=== PATIENT | female | born 1990 ===

== ENCOUNTER 2023-04-26 18:49 | Emergency (ER) | payer OTHER, MEDICAID, SELFPAY ==
[2023-04-26 18:55] VITALS: BP 140/90; PULSE 89; RESP 18; TEMP 36.7; O2SAT 99; BMI 39.4
[2023-04-26 18:59] VITALS: PULSE 88
--- NOTE | 2023-04-26 18:59 | DI.RAD.S_ITS ---
PROCEDURE: XR ANKLE RT MIN 3V INDICATIONS: slipped on slip and slide. + swelling unable to bear weigh TECHNIQUE: 3 views of the ankle were acquired. COMPARISON: None. FINDINGS: Bones: There is a minimally displaced fracture of the lateral malleolus. No dislocation. Ankle mortise is normally aligned. No suspicious bony lesions. Soft tissues: There is a small tibiotalar joint effusion. Periarticular soft tissue swelling also demonstrated anteriorly and laterally. Achilles tendon appears normal. IMPRESSION: 1. Minimally displaced lateral malleolus fracture. Dictated by: Sourav Martinez M.D. on 04/26/2023 at 20:10 Approved by: Sourav Martinez M.D. on 04/26/2023 at 20:11
--- NOTE | 2023-04-26 22:20 | ED.LOWEXIN ---
HPI - Extremity Injury (Lower) General Chief Complaint: Extremity Injury, Lower Stated Complaint: R Ankle Injury Time Seen by Provider: 04/26/23 22:20 Source: patient and EMS Mode of arrival: EMS History of Present Illness HPI Narrative: Patient is a healthy 32-year-old female who presents today with right ankle pain and injury. She reports that she slipped on slip and slide unable to ambulate or bear weight. Denies any other injury. Related Data Previous Rx's Medication Instructions Recorded hydrocodone 5 mg-acetaminophen 325 1 tab PO Q6H PRN pain #10 tabs 04/26/23 mg tablet Allergies Allergy/AdvReac Type Severity Reaction Status Date / Time No Known Drug Allergies Allergy Verified 04/26/23 18:50 Review of Systems Review of Systems ROS Unobtainable: All systems reviewed & are unremarkable except as noted in HPI and below Patient History Social History Smoking Status: Current some day smoker Smoking Status: Current some day smoker tobacco type: cigarettes alcohol intake frequency: 0-2 drinks per day Substance Use Type: does not use Exam Initial Vital Signs Initial Vital Signs: Vital Signs Temperature 98.1 F 04/26/23 18:55 Pulse Rate 89 04/26/23 18:55 Respiratory Rate 18 04/26/23 18:55 Blood Pressure 140/90 04/26/23 18:55 Pulse Oximetry 99 04/26/23 18:55 Oxygen Delivery Method Room Air 04/26/23 18:55 GENERAL: Alert pleasant 32-year-old female HEENT: Head atraumatic,EOMI, pupils reactive, face symmetric, moist mucous membranes CARDIOVASCULAR: No cyanosis peripheral pulses intact RESPIRATORY: No respiratory distress speaks in full sentences ABDOMEN: Soft, nontender. Normoactive bowel sounds all 4 quadrants. No guarding or rebound. EXTREMITIES: Normal range of motion, no clubbing or edema. Neurovascularly intact Right lower extremity tender lateral malleoli distal pedal pulse intact knee is stable NEUROLOGICAL: Alert and oriented x4. SKIN: Warm, dry, no laceration, no petechiae, no rashes or lesions. Procedures Orthopedic Splinting/Casting Injury #1: Lower Extremity Injury Location: ankle Lower Extremity Immobilizer: boot orthosis Other Orthopedic Equipment: crutches Post splinting neuro exam: intact and no change Post splinting vascular exam: no change Placed by: Nursing Course Orders Ordered: ED Orders 04/26/23 18:59 XR ankle RT min 3V Stat Discontinued Medications Hydrocodone Bitart/Acetaminophen (Hydrocodone/Acet 5/325 Prepack) 1 bottle MISC SEEINSTR ONE Stop: 04/26/23 22:39 Last Admin: 04/26/23 22:49 Dose: 1 bottle Documented By: HARRISON Ketorolac Tromethamine (Ketorolac 30 Mg/Ml Vial) 15 mg IV NOW ONE Stop: 04/26/23 22:39 Last Admin: 04/26/23 22:48 Dose: 15 mg Documented By: HARRISON Vital Signs Vital signs: Vital Signs - 8 hr 04/26/23 23:10 Temperature 98.2 F Pulse Rate 90 Respiratory Rate 18 Blood Pressure 130/78 Pulse Oximetry 98 Oxygen Delivery Method Room Air MDM - Extremity Injury (Lower) Imaging Data Extremity x-ray #1: Radiologist's Impression: PROCEDURE:? XR ANKLE RT MIN 3V ? INDICATIONS:? slipped on slip and slide. + swelling ? unable to bear weigh ? TECHNIQUE:? 3 views of the ankle were acquired.? ? COMPARISON:? None. ? FINDINGS:? ? Bones:? There is a minimally displaced fracture of the lateral malleolus.? No dislocation.? Ankle mortise is normally aligned.? No suspicious bony lesions.? ? Soft tissues:? There is a small tibiotalar joint effusion.? Periarticular soft tissue swelling also demonstrated anteriorly and laterally.? Achilles tendon appears normal.? ? ? IMPRESSION:? ? 1. Minimally displaced lateral malleolus fracture. ? ? Dictated by: Sourav Martinez M.D. on 04/26/2023 at 20:10 ? ? [facility] Narrative Medical decision making narrative: Patient 32-year-old female presenting today with right ankle isolated injury. Placed in a walking boot crutches and given pain medication. Encourage orthopedic follow-up Discharge Plan Departure Patient Disposition: Home Clinical Impression: Ankle fracture Instructions: Ankle Fracture Activity Restrictions/Additional Instructions: *You have been diagnosed with right ankle fracture *What to do: At this time use crutches as needed wear boot at all times including to sleep. Elevate and ice. Sometimes these Do require surgery *Continue to take medications as directed [place] 1 tablet every 6 hours if needed for severe pain Tylenol 650 mg every 4-6 hours *Follow up with your primary care provider in 2-3 days or call [phone] Call orthopedics tomorrow to schedule follow-up appointment *Return to ER if you should have increased pain swelling numbness tingling weakness or any new, worsening or concerning symptoms CONTROLLED SUBSTANCE DISCHARGE (Narcotoic/benzodiazepine/Flexeril/Phenergan) 1. You have been prescribed narcotic medications, it does have acetaminophen/Tylenol/paracetamol in it, DO NOT TAKE MORE THAN 4,00mg in 24 hours of Tylenol. TRAMADOL DOES NOT CONTAIN TYLENOL 2. Please understand that we cannot provide further refills of narcotics, benzodiazepines or controlled substances through the ED and her pain management will need to be through your provider. 3. While on these medications you cannot drive or operate heavy machinery. 4. You cannot sign legal documents or perform any duties such as this. 5. As long as you're taking opiate pain medications he should also be taking a stool softener such as Colace, Dulcolax, MiraLAX or prune juice, to help avoid constipation. Prescriptions: New hydrocodone-acetaminophen 5-325 mg tablet 1 tab PO Q6H PRN (Reason: pain) Qty: 10 0RF Referrals: Shahid Tompkins MD [Primary Care Provider] - [facility] [Provider Group] Stand Alone Forms: Patient Portal/API
[2023-04-26] MEDS: KETOROLAC 30 MG/ML VIAL 15 MG IV (22:48)
[2023-04-26] MEDS: HYDROCODONE/ACET 5/325 PREPACK 1 BOTTLE MISC (22:49)
[2023-04-26 23:10] VITALS: BP 130/78; PULSE 90; RESP 18; TEMP 36.8; O2SAT 98
== END 2023-04-26 23:12 | disposition home or self-care (01) ==
PROVIDERS: Emergency Provider Emergency Medicine; PCP Internal Medicine
DX: S82.891A Other fracture of right lower leg, initial encounter for closed fracture (principal); W01.0XXA Fall on same level from slipping, tripping and stumbling without subsequent striking against object, initial encounter
CPT/HCPCS: 73610; 96374; 99284; J1885

== ENCOUNTER → 2025-08-13 17:34 | Outpatient (CLI) | payer OTHER, MEDICAID, SELFPAY ==
[2025-08-13 18:40] LABS: Appearance Urine UA CLEAR; Bilirubin Urine UA NEGATIVE (NEGATIVE); Color Urine UA YELLOW; Glucose Urine UA NEGATIVE (Negative); Ketones Urine UA NEGATIVE (NEGATIVE); Leukocyte Esterase Urine UA NEGATIVE (NEGATIVE); Nitrite Urine UA NEGATIVE (Negative); Occult Blood Urine UA NEGATIVE (Negative); Protein Urine UA NEGATIVE (Negative); Specific Gravity Urine UA 1.015 (1.000-1.035); Urobilinogen Urine UA 0.2 E.U./dL (0.2)
[2025-08-13 18:42] LABS: pH Urine UA 7.5 (4.5-8.0)
[2025-08-13 19:02] LABS: Culture Indicated Urine Cult Not Indicated
== END ==
PROVIDERS: PCP Internal Medicine; Visit Provider Obstetrics & Gynecology Gynecology
DX: N32.81 Overactive bladder (principal); N30.10 Interstitial cystitis (chronic) without hematuria
CPT/HCPCS: 81001